=== PATIENT | female | born 1950 | race Caucasian/White ===

== ENCOUNTER 2018-11-27 19:06 | Outpatient (CLI) | payer BC, MEDICARE | END 2018-11-27 19:07 | disposition critical access hospital (66) | LOC: EMS 19:06 | PROVIDERS: ATTEND Surgery | DX: R11.10 Vomiting, unspecified (principal) | CPT/HCPCS: A0425; A0427 ==

== ENCOUNTER 2018-11-27 19:19 | Emergency (ER) | payer MEDICARE, BC ==
--- NOTE | 2018-11-27 21:50 | ED Physician Documentation ---
PD HPI NVD - Stated complaint Stated Complaint: VOMITING - Chief complaint Chief Complaint: Abd Pain - History obtained from History obtained from: Patient, Family - History of Present Illness Timing - onset: Enter time (05:00), Today Timing - details: Abrupt onset, Waxing and waning Associated symptoms: Abdominal pain. No: Fever Improved by: Other (nothing) Worsened by: Other (PO intake) Similar symptoms before: Has not had sx before Recently seen: Not recently seen - Additonal information Additional information: c/o nausea, vomiting since 5 AM this morning. Patient recently started Cardizem and she attributes her n/v to this new medication. She says she has been unable to keep anything down today including medications Review of Systems Constitutional: reports: Reviewed and negative Cardiac: reports: Reviewed and negative Respiratory: reports: Reviewed and negative GI: reports: Abdominal Pain (cramping), Nausea, Vomiting. denies: Constipation, Diarrhea : denies: Dysuria, Frequency PD PAST MEDICAL HISTORY - Past Medical History Past Medical History: No Cardiovascular: Hypertension, High cholesterol GI: GERD, Hiatal hernia, Other : None Psych: Anxiety Musculoskeletal: Osteoarthritis, Chronic back pain Other Past Medical History: barretts esophagus, thrombocytosis - Past Surgical History Past Surgical History: Yes General: Appendectomy, Gastric surgery Ortho: Knee replacement /[employer]: section - Present Medications Home Medications: Ambulatory Orders Medication Instructions Recorded Confirmed Acetaminophen 2 11/27/18 Ferrous Gluconate [Iron] 1 tab 11/27/18 Lisinopril 40 mg PO 11/27/18 Omeprazole 20 mg PO 11/27/18 amLODIPine [Norvasc] 5 mg 11/27/18 oxyCODONE ER [OxyCONTIN] 10 mg PO Q12H 11/27/18 11/27/18 Promethazine [Phenergan] 25 mg PO Q6H PRN #10 tab 11/28/18 - Allergies Allergies/Adverse Reactions: Allergies Allergy/AdvReac Type Severity Reaction Status Date / Time No Known Drug Allergies Allergy Verified 11/27/18 21:59 - Social History Does the pt smoke?: No Smoking Status: Never smoker Does the pt drink ETOH?: No Does the pt have substance abuse?: No - Immunizations Immunizations are current?: Yes - POLST Patient has POLST: No PD ED PE NORMAL - Vitals Vital signs reviewed: Yes - General General: Alert and oriented X 3, No acute distress, Well developed/nourished - Cardiac Cardiac: No murmur - Respiratory Respiratory: No respiratory distress, Clear bilaterally - Abdomen Abdomen: Soft, Non tender, Non distended, Other (hyperactive bowel sounds) - Derm Derm: Normal color, Warm and dry PD ED PE EXPANDED - Cardiac Cardiac: Tachy, Regular Rhythm Results - Vitals Vitals: Oxygen O2 Source Room air - Labs Labs: Laboratory Tests 11/27/18 11/27/18 22:06 22:06 WBC 13.0 H RBC 4.82 Hgb 13.3 Hct 41.7 MCV 86.4 MCH 27.6 MCHC 32.0 RDW 14.9 Plt Count 422 MPV 7.3 L Neut # (Auto) 12.1 H Lymph # (Auto) 0.5 L [place] # (Auto) 0.3 Eos # (Auto) 0.0 Baso # (Auto) 0.1 Absolute Nucleated RBC 0.00 Nucleated RBC % 0.0 Sodium 132 L Potassium 3.1 L Chloride 97 L Carbon Dioxide 19 L Anion Gap 16.0 H BUN 15 Creatinine 0.7 Estimated GFR (MDRD) 83 L Glucose 207 H Calcium 9.5 Total Bilirubin 0.7 AST 29 ALT 23 Alkaline Phosphatase 68 Total Protein 8.3 H Albumin 4.3 Globulin 4.0 Albumin/Globulin Ratio 1.1 Lipase 24 PD MEDICAL DECISION MAKING - ED course Complexity details: reviewed results, re-evaluated patient, considered differential, d/w patient Departure - Departure Disposition: 01 Home, Self Care Clinical Impression: Vomiting Condition: Good Instructions: ED Nausea Vomiting Follow-Up: Mona Preston ARNP [Primary Care Provider] - Prescriptions: Promethazine [Phenergan] 25 mg PO Q6H PRN #10 tab PRN Reason: Nausea / Vomiting Discharge Date/Time: 11/28/18 02:06
[2018-11-27] MEDS ORDERED: HYDROmorphone 1 MG/ML CARPUJECT IVP STA (21:57)
[2018-11-27] MEDS ORDERED: SODIUM CHLORIDE 0.9% 1,000 ML IV STA (21:57)
[2018-11-27] MEDS ORDERED: ONDANSETRON 4 MG/2 ML VIAL IVP STA (21:58)
[2018-11-27 22:11] LABS: BASOPHILS # (AUTO) 0.1 10^3/uL (0.0-0.1); BASOPHILS % (AUTO) 0.6 %; HGB - HEMOGLOBIN 13.3 g/dL (12.0-16.0); LYMPHOCYTES # (AUTO) 0.5 10^3/uL (1.5-3.5); LYMPHOCYTES % (AUTO) 4.1 %; MEAN CORPUSCULAR HEMOGLOBIN 27.6 pg (27.0-31.0); MEAN CORPUSCULAR VOLUME 86.4 fL (81.0-99.0); MEAN PLATELET VOLUME 7.3 fL (7.9-10.8); MONOCYTES # (AUTO) 0.3 10^3/uL (0.0-1.0); NEUTROPHILS # (AUTO) 12.1 10^3/uL (1.5-6.6); NEUTROPHILS % (AUTO) 93.3 %; PLT - PLATELET COUNT 422 10^3/uL (130-450); RED BLOOD COUNT 4.82 10^6/uL (4.20-5.40); RED CELL DISTRIBUTION WIDTH 14.9 % (12.0-15.0)
[2018-11-27 22:22] LABS: ALBUMIN 4.3 g/dL (3.2-5.5); ALBUMIN/GLOBULIN RATIO 1.1 (1.0-2.2); BILIRUBIN,TOTAL 0.7 mg/dL (0.2-1.0); CALCIUM 9.5 mg/dL (8.5-10.3); CREATININE 0.7 mg/dL (0.4-1.0); TOTAL PROTEIN 8.3 g/dL (6.7-8.2)
[2018-11-28] MEDS ORDERED: PROMETHAZINE INJ 25 MG in SODIUM CHLORIDE 0.9% 50 ML IV STA (00:18)
[2018-11-28] MEDS ORDERED: SODIUM CHLORIDE 0.9% 1,000 ML IV STA (00:18)
[2018-11-28 02:00] VITALS: BP 180/87
== END 2018-11-28 02:06 | disposition home or self-care (01) ==
LOC: EDUNIT# → ED 19:19
DX: R11.2 Nausea with vomiting, unspecified (principal); R94.31 Abnormal electrocardiogram [ECG] [EKG]; I10 Essential (primary) hypertension; E78.00 Pure hypercholesterolemia, unspecified; Z96.659 Presence of unspecified artificial knee joint
CPT/HCPCS: 36415; 80053; 83690; 85025; 93005; 96361; 96365; 96375; 99283; J1170; J7040